=== PATIENT | female | born 1935 | race Caucasian/White ===

== ENCOUNTER 2016-05-31 03:30 | Emergency (ER) | payer MEDICARE ==
[~2016-05-31] VITALS: Ht 157.4 cm; Wt 63.5 kg
[~2016-05-31 03:30] MED LIST: ALOPHEN5 MG PO; ARANESP0.1 MG/0.5 SC; ATARAX,VISTARIL10 MG PO; ATARAX10 MG; ATIVAN0.5 MG PO; ATOXIMETIN-B1 CAP PO; ATROPINE SULFATE T; ATROVENT I0.5 MG/2.1 INH; BACTRIM DS 8001 TA1 IV; BISACODYL5 MG PO; CALCIUM ANTACID PO; CEFTIN250 MG PO; CEFTRIAXONE IM; CEFTRIAXONE1 GM IM; CEROVITE ADVANC1 TAB PO; CIPRO XR500 MG PO; CIPROFLOXACIN100 MG PO; COLACE PO; COLACE100 MG PO; COREG3.125 MG PO; COUMADIN3 MG PO; COUMADIN4 M1 PO; COUMADIN6 M2 PO; CYMBALTA30 MG PO; CYMBALTA60 MG PO; Coumadin3 MG PO; DOXYCYCLINE100 M3 PO; DOXYCYCLINE100 MG PO; DULCOLAX STOOL100 MG PO; DULCOLAX5 MG PO; DURAGESIC50 MCG/HR TD; DUREZOL 5 ML5 ML OP; Duragesic 25 M25 MCG INTRADERM; Duragesic 25 M25 MCG TD; EPA/GLA1 SGL PO; FAMILY PHARMAC325 MG PO; FE-TABS325 MG PO; FENTANYL TR25 MCG/HR T; FENTANYL75 MCG/HR TD; FERROUS SULFAT324 M1 PO; FISH OIL 10001000 MG PO; FLAGYL500 MG PO; FLEET ADULT ENEM1 EA R; FLEXERIL10 MG PO; FLORASTOR250 MG PO; GENTAMICIN IV; GLIMEPIRIDE4 MG PO; GLUCAGON EMERGEN1 MG IJ; HYDROXYZINE10 MG PO; IRON325 M1 PO; ISOPTO ATROPINE PO; JANTOVEN4 MG PO; JANUVIA100 MG PO; KEFLEX500 MG PO; LASIX40 MG PO; LEVAQUIN750 MG PO; LEVOTHYROXIN0.025 MG PO; LEXAPRO10 MG PO; LEXAPRO20 MG PO; LIQUID MAGNESI400 MG PO; LOMOCOT 0.025 M1 TAB; LOMOTIL 0.025 M1 TA1 PO; LOVENOX30 MG/0.3 SC; Lovenox30 MG/0.3 SC; Lovenox40 MG/0.4 IJ; Lovenox80 MG/0.8 SC; MACROBID100 M1 PO; MEGACE 40400 MG/10 PO; MEGACE PO; MEGACE40 MG PO; METFORMIN500 MG PO; MICRO K10 MEQ PO; MINOCYCLINE HC100 MG PO; MINOCYCLINE100 MG PO; MIRALAX17 GM/PACK PO; MORPHINE S20 MG/1 ML PO; MORPHINE SULFATE PO; MULTIPLE VITAMI1 CAP PO; MYCOLOG CREAM 115 GM T; Micro K10 MEQ PO; NOVOLIN R100 U/ML SC; NOVOLOG10 ML SC; NUTREN; OMEGA 31000 MG; ONDANSETRON8 M1; OSCAL,OYSTER S500 MG PO; PERCOCET 325 MG1 TA2; PERCOCET 500 MG1 TAB PO; PERIDEX 14401440 ML PO; POLYETHYLE17 GM/Dose PO; POLYETHYLENE GL1 POW; POTASSIUM CHLO10 ME4 PO; POTASSIUM20 MEQ PO; PRAVACHOL20 MG PO; PREDNISOLONE5 MG; PREDNISONE10 MG PO; PREDNISONE5 MG PO; PRILOSEC10 MG/Pack PO; PRILOSEC20 MG; PROCRIT10000 U/ML IJ; PROSTATE; Peridex 473 ML473 ML PO; QUESTRAN LIGHT4 GM PO; RESOURCE 2.0 2237 ML PO; RISPERDAL1 M1 PO; ROBITUSSIN100 MG/5 M PO; ROCEPHIN1 GM IV; ROXICODONE5 MG PO; SENNA PLUS PO; SOLU-MEDROL40 MG PO; SUPER EPA 2002000 MG PO; SYNTHROID,LEVO25 MCG PO; SYNTHROID0.075 MG PO; TOBRAMYCIN AND2.5 ML OP; TOPICORT0.05% TP; TOPICORT0.051 TP; TRAMADOL HCL50 MG PO; TYLENOL 8 HOUR650 MG PO; TYLENOL EXTRA500 MG PO; TYLENOL325 M1 PO; TYLENOL500 MG PO; Tobrex Ophth S2.5 ML OPH; VIBRAMYCIN100 MG PO; VISINE 15 ML15 ML OPH; VISION T; VITAMIN D50000 I2 PO; Ventolin 02.5 MG/3 M INH; XANAX0.25 MG PO; ZOFRAN4 MG/5 ML PO; ZOFRAN8 MG PO; ZYPREXA2.5 MG PO; ZYRTEC10 M3 PO; Zofran4 MG PO; [UNRECOGNIZED DRUG - OTHER] PO
[2016-05-31] MEDS ORDERED: GLIPIZIDE5 MG PO (03:41)
[2016-05-31] MEDS ORDERED: MULTI VITAMINS1 TAB PO (03:42)
[2016-05-31] MEDS ORDERED: LANTUS100 U/ML SC (03:43)
[2016-05-31] MEDS ORDERED: TYLENOL325 M2 PO (03:45)
[2016-05-31] MEDS ORDERED: NORCO 5-325 TA1 EACH PO (03:45)
[2016-05-31 03:59] LABS: BILIRUBIN NEGATIVE (NEGATIVE); BLOOD 2+ (NEGATIVE); CLARITY SL CLOUDY (CLEAR); COLOR YELLOW (YELLOW); GLUCOSE NEGATIVE (NEGATIVE); KETONE NEGATIVE (NEGATIVE); LEUKO ESTERASE 2+ (NEGATIVE); NITRITE NEGATIVE (NEGATIVE); PH 6.5 (5.0-9.0); PROTEIN 3+ (NEGATIVE); SPECIFIC GRAVITY 1.025 (1.005-1.030)
[2016-05-31 04:01] LABS: BASO % 0.4 % (0.0-1.0); EOS # 0.4 10*3/uL (0.0-0.4); EOS % 4.8 % (1.0-4.0); HEMATOCRIT 46.1 % (37.0-47.0); HEMOGLOBIN 15.5 g/dl (12.0-16.0); LYMPH # 1.8 10*3/uL (1.3-4.4); LYMPH % 22.7 % (27.0-41.0); MEAN CELL VOLUME 94.9 fl (81.0-99.0); MEAN CORPUSCULAR HGB 31.9 pg (27.0-31.0); MEAN CORPUSCULAR HGB CONC 33.6 g/dl (33.0-37.0); MEAN PLATELET VOLUME 10.9 fl (9.6-12.3); MONO # 0.8 10*3/uL (0.1-1.0); NEUT % 61.7 % (47.0-73.0); PLATELET COUNT AUTOMATED 123 10*3/uL (130-400); RED BLOOD COUNT 4.86 10*6/uL (4.10-5.10); WHITE BLOOD COUNT 8.1 10*3/uL (4.8-10.8)
[2016-05-31 04:09] LABS: BACTERIA 1+; RBC 41-50 rbc/hpf (0-2); WBC 41-50 wbc/hpf (0-5)
[2016-05-31 04:18] LABS: ALBUMIN 2.8 gm/dl (3.1-4.5); ALKALINE PHOSPHATASE 121 U/L (45-117); BILIRUBIN, DIRECT 0.4 mg/dL (0.0-0.2); BILIRUBIN, TOTAL 0.9 mg/dl (0.2-1.0); BUN 12 mg/dl (7-24); CARBON DIOXIDE 24 mmol/L (21-32); CHLORIDE 106 mmol/L (98-107); EST GLOM FILT AFRICAN AMERICAN > 60 ml/min; GLUCOSE 169 mg/dL (65-99); MAGNESIUM 1.8 mg/dL (1.5-2.1); POTASSIUM 3.6 mmol/L (3.5-5.1); SGOT/AST 38 IU/L (3-35); SGPT/ALT 18 U/L (12-78); SODIUM 143 mmol/L (136-145); TOTAL PROTEIN 8.2 gm/dL (6.4-8.2)
[2016-05-31 04:19] LABS: TROPONIN I 0.031 ng/ml (<0.045)
[2016-05-31 05:57] LABS: LA>2 REFLEX 2 HR DRAW NOW
[2016-05-31 06:23] LABS: LA>2 RFLX FOLLOW UP AT 2 HRS 2.5 mmol/L (0.4-2.0)
[2016-05-31] MEDS ORDERED: MACROBID100 M1 PO (06:39)
[2016-05-31 08:13] LABS: LA>2 REFLEX 4 HR DRAW NOW
== END 2016-05-31 07:11 ==
LOC: ED 03:30
PROVIDERS: Emergency Medicine
DX: R56.9 Unspecified convulsions (principal); N39.0 Urinary tract infection, site not specified; Z88.0 Allergy status to penicillin; Z88.1 Allergy status to other antibiotic agents; Z88.6 Allergy status to analgesic agent; Z79.4 Long term (current) use of insulin; Z79.899 Other long term (current) drug therapy

== ENCOUNTER 2016-09-02 18:20 | Inpatient (IN) | payer MEDICARE ==
[~2016-09-02] VITALS: Ht 162.6 cm; Wt 74.4 kg
[2016-09-02] VITALS (11 sets, daily range): BP systolic 96–167; BP diastolic 37–81
--- NOTE | ~2016-09-02 | DS ---
[place], [place] DISCHARGE SUMMARY [id number] UN[facility] #: [id number] ROOM: 407 DOCTOR: NENITA AGUILAR MD BIRTHDATE: [birth year] DOS: 09/06/2016 DISCHARGE DIAGNOSES: 1. Acute cholecystitis with gallstones, improved with antibiotic treatment. Dr. Reyes suggested conservative treatment. The patient is not a good surgical candidate. 2. Enterobacter cloacae positive blood cultures. 3. Sepsis, resolved. 4. Escherichia coli positive urine infection with cystitis. 5. Old age and disability and adult failure to thrive. 6. 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 7. Uncontrolled type 2 diabetes mellitus. 8. History of seizure disorder. 9. Previous history of lower gastrointestinal bleed. 10. Previous history of intracranial bleed. HOSPITAL COURSE: 1. The patient was admitted to [facility] when she presented from the [facility] with severe right upper quadrant abdominal pain and she was found to have acute cholecystitis and cholelithiasis. The patient was admitted and treated conservatively after Dr. Reyes, the general surgeon recommended conservative treatment. The patient did improve with treatment with IV antibiotics and abdominal pains have resolved. The patient is eating better and she was hydrated with normal saline. The patient appears to have achieved maximum benefit from this admission and will be discharged back to the [facility]. The surgeon, Dr. Reyes suggested surgery only if necessary and peripherally percutaneous cystostomy because of her poor general health and patient being a poor candidate for surgery. 2. Type 2 diabetes mellitus with reasonably controlled blood sugars. Blood sugars were monitored and treated. 3. Mixed hyperlipidemia, followed and treated. 4. Benign essential hypertension with controlled blood pressures with treatment. 5. Urinary tract infection with urine cultures growing Escherichia coli, which were appropriately treated with antibiotics and blood cultures 1 out of 2 bottles growing Enterobacter cloacae, treated with IV aztreonam. DISCHARGE MANAGEMENT: Hydroxyzine 25 mg t.i.d. p.r.n. for anxiety, risperidone 0.5 mg at bedtime, Kenalog to skin as needed b.i.d., Cymbalta 90 mg a day, cetirizine 10 mg a day, glipizide 5 mg daily, check bedside sugars q.i.d. 2 days a week, levothyroxine 25 mcg daily, aztreonam IV 2 grams daily for 6 more doses, fentanyl patch 25 mcg every 3 days, Flagyl 250 mg every 8 hours for a week, Tylenol 1 gram t.i.d. p.r.n. for breakthrough brain. [place], [place] DISCHARGE SUMMARY NAME: IZZY CADET UNIT #: [id number] ROOM: 407 DOCTOR: NENITA AGUILAR MD BIRTHDATE: [birth year] NENITA AGUILAR MD CM:KARAN [id number] NENITA AGUILAR MD 09/06/16 1635 interface
--- NOTE | ~2016-09-02 | PR ---
[place], [place] PROGRESS NOTE NAME: IZZY CADET UNIT #: [id number] ROOM: 407 DOCTOR: CLARITZA FELIZ,MAY BIRTHDATE: [birth year] DOS: 09/06/2016 SUBJECTIVE: The patient is being followed for an Enterobacter septicemia with positive blood cultures from 09/02/2016. Urine culture grew E. coli. She had an ultrasound, which verified acute cholecystitis with cholelithiasis which is being managed conservatively by surgery. Orders have already been placed for [facility] She is currently on a VAC and she has multiple drug allergies with only known reaction with rash with cephalosporins. She is tolerating the Azactam, has good appetite. No nausea, vomiting or diarrhea. No abdominal pain. No cough or shortness of breath. No recent fevers or shaking chills. PHYSICAL EXAMINATION: VITAL SIGNS: Show temperature 98.0, pulse 84, respirations 20, BP 152/57. GENERAL: A 81-year-old female in no acute distress. HEAD, EYES, EARS, NOSE AND THROAT: Normocephalic, no thrush. LUNGS: Rales at bilateral bases. Respirations even and unlabored. HEART: Regular rhythm. No murmur appreciated. ABDOMEN: Soft, nontender, nondistended, positive bowel sounds. EXTREMITIES: +1 edema of bilateral lower extremities. SKIN: Warm, dry, free of rashes. LABORATORY DATA: Show WBC 7.6, platelets 122, BUN 28, creatinine 0.78. ASSESSMENT: Acute cholecystitis with Enterobacter septicemia. PLAN: I did discuss the case with Dr. Sue Montoya. She can be discharged on the Azactam and Flagyl. JCARLOS JERRY CNP SUE MONTOYA MD CM:PNTRANS [id number] MAY CLARITZA FELIZ 09/06/16 2242 interface
--- NOTE | ~2016-09-02 | PR ---
[place], [place] PROGRESS NOTE NAME: IZZY CADET UNIT #: [id number] ROOM: 407 DOCTOR: NENITA AGUILAR MD BIRTHDATE: [birth year] DOS: 09/05/2016 SUBJECTIVE: The patient still has some right upper quadrant pain, but overall better. The patient is sleeping more than yesterday. OBJECTIVE: GENERAL APPEARANCE: Generalized weakness. VITAL SIGNS: Blood pressure 152/65, heart rate 69 beats per minute, breathing 20 times per minute, temperature 98 degrees Fahrenheit. HEENT AND NECK: Exam within normal limits. CARDIOVASCULAR SYSTEM: Heart rate is regular in rate and rhythm. S1 and S2 normally audible. LUNGS: Clear to auscultation. ABDOMEN: Soft, nontender. No obvious organomegaly. Bowel sounds are present. EXTREMITIES: Without significant cyanosis or edema. IMPRESSION: 1. The patient with acute cholecystitis and gallstones, which is being treated conservatively and improving. Surgeon, Dr. Reyes recommended conservative treatment and kept surgery as a last choice. 2. Urinary tract infection, is being treated and followed. One blood culture growing gram-negative bacilli. Urine culture is growing E. coli. 3. The patient tolerating regular diet and is being treated with aztreonam. Infectious Disease specialists are following. NENITA AGUILAR MD CM:PNTRANS [id number] NENITA AGUILAR MD 09/06/16 0010 interface
[~2016-09-02 18:20] MED LIST changes: +GLIPIZIDE5 MG PO; +LANTUS100 U/ML SC; +MULTI VITAMINS1 TAB PO; +NORCO 5-325 TA1 EACH PO; +TYLENOL325 M2 PO
[2016-09-02 18:46] LABS: BILIRUBIN 1+ (NEGATIVE); BLOOD 3+ (NEGATIVE); CLARITY SL CLOUDY (CLEAR); COLOR YELLOW (YELLOW); GLUCOSE NEGATIVE (NEGATIVE); KETONE TRACE (NEGATIVE); LEUKO ESTERASE 3+ (NEGATIVE); NITRITE NEGATIVE (NEGATIVE); PH 5.5 (5.0-9.0); PROTEIN 2+ (NEGATIVE)
[2016-09-02 18:51] LABS: BACTERIA 4+; MUCOUS TRACE; URINE REFLEX COMMENT YES (NO); WBC TNTC wbc/hpf (0-5)
[2016-09-02] MEDS ORDERED: DOXYCYCLINE100 M3 PO (18:58)
[2016-09-02] MEDS ORDERED: CYMBALTA60 MG PO (18:58)
[2016-09-02] MEDS ORDERED: GLIPIZIDE5 MG PO (18:59)
[2016-09-02] MEDS ORDERED: Duragesic 25 M25 MCG TD (18:59)
[2016-09-02] MEDS ORDERED: HUMALOG100 UNIT/1 SQ (19:00)
[2016-09-02] MEDS ORDERED: LANTUS100 U/ML SC (19:00)
[2016-09-02] MEDS ORDERED: HYDROXYZINE HCL10 MG PO (19:00)
[2016-09-02] MEDS ORDERED: LEVOTHYROXIN0.025 MG PO (19:01)
[2016-09-02] MEDS ORDERED: NORCO 5-325 TA1 EACH PO (19:01)
[2016-09-02] MEDS ORDERED: MULTIPLE VITAMI1 TA5 PO (19:01)
[2016-09-02] MEDS ORDERED: NYSTATIN AND TR1 OIN T (19:02)
[2016-09-02] MEDS ORDERED: ZYRTEC10 MG PO (19:03)
[2016-09-02] MEDS ORDERED: RISPERDAL0.5 MG PO (19:03)
[2016-09-02] MEDS ORDERED: TYLENOL325 M2 PO (19:03)
[2016-09-02 19:13] LABS: HEMATOCRIT 41.3 % (37.0-47.0); HEMOGLOBIN 14.7 g/dl (12.0-16.0); MEAN CELL VOLUME 89.4 fl (81.0-99.0); MEAN CORPUSCULAR HGB 31.8 pg (27.0-31.0); MEAN CORPUSCULAR HGB CONC 35.6 g/dl (33.0-37.0); MEAN PLATELET VOLUME 11.3 fl (9.6-12.3); PLATELET COUNT AUTOMATED 111 10*3/uL (130-400); RED BLOOD COUNT 4.62 10*6/uL (4.10-5.10); RED CELL DISTRI WIDTH 14.2 % (0-14.5); WHITE BLOOD COUNT 26.2 10*3/uL (4.8-10.8)
[2016-09-02 19:31] LABS: ALBUMIN 2.7 gm/dl (3.1-4.5); BILIRUBIN, TOTAL 1.6 mg/dl (0.2-1.0); POTASSIUM 3.9 mmol/L (3.5-5.1); TOTAL PROTEIN 8.1 gm/dL (6.4-8.2)
[2016-09-02 19:35] LABS: LYMPHOCYTE # 0.5 10*3/uL (1.3-4.4); MONOCYTE # 1.8 10*3/uL (0.1-1.0); NEUTROPHIL # 23.8 10*3/uL (2.3-7.9); NEUTROPHILS 91 % (47-73); PLATELET SUFFICIENCY NORMAL (NORMAL); TOTAL CELLS COUNTED 100 #CELLS
[2016-09-02 21:09] LABS: LA>2 REFLEX 2 HR DRAW NOW
[2016-09-02 21:17] LABS: LA>2 RFLX FOLLOW UP AT 2 HRS 6.8 mmol/L (0.4-2.0)
[2016-09-02 23:11] LABS: LA>2 REFLEX 4 HR DRAW NOW
[2016-09-03 00:53] LABS: INTERNATIONAL NORM RATIO 1.3 (2.0-3.5); PROTHROMBIN TIME 13.9 SECONDS (9.0-12.4)
[2016-09-03 04:00] VITALS: BP 118/54
[2016-09-03 08:00] VITALS: BP 130/50
[2016-09-03 08:14] LABS: HEMATOCRIT 38.4 % (37.0-47.0); MEAN CORPUSCULAR HGB 31.8 pg (27.0-31.0); MEAN CORPUSCULAR HGB CONC 33.9 g/dl (33.0-37.0); MEAN PLATELET VOLUME 11.7 fl (9.6-12.3); PLATELET COUNT AUTOMATED 116 10*3/uL (130-400); RED BLOOD COUNT 4.09 10*6/uL (4.10-5.10); RED CELL DISTRI WIDTH 14.5 % (0-14.5); WHITE BLOOD COUNT 22.2 10*3/uL (4.8-10.8)
[2016-09-03 08:15] LABS: MEAN CELL VOLUME 93.9 fl (81.0-99.0)
[2016-09-03 08:27] LABS: LYMPHOCYTE # 1.6 10*3/uL (1.3-4.4); MONOCYTE # 1.3 10*3/uL (0.1-1.0); NEUTROPHIL # 19.3 10*3/uL (2.3-7.9); NEUTROPHILS 87 % (47-73); PLATELET SUFFICIENCY LOW (NORMAL); TOTAL CELLS COUNTED 100 #CELLS
[2016-09-03 12:00] VITALS: BP 155/62
[2016-09-03 16:00] VITALS: BP 114/46
[2016-09-03 20:00] VITALS: BP 116/49
[2016-09-04] VITALS: BP 139/51
[2016-09-04 08:00] VITALS: BP 137/90
[2016-09-04 12:00] VITALS: BP 138/40
[2016-09-04 16:00] VITALS: BP 107/87
[2016-09-04 20:00] VITALS: BP 122/85
[2016-09-05] VITALS: BP 125/73
[2016-09-05 08:00] VITALS: BP 108/56
[2016-09-05 12:00] VITALS: BP 144/50
[2016-09-05 16:00] VITALS: BP 152/65
[2016-09-05 20:00] VITALS: BP 146/50
[2016-09-06] VITALS: BP 178/70
[2016-09-06 08:00] VITALS: BP 136/45
[2016-09-06 12:00] VITALS: BP 152/46
[2016-09-06 12:22] LABS: BASO % 0.1 % (0.0-1.0); EOS # 0.1 10*3/uL (0.0-0.4); EOS % 1.8 % (1.0-4.0); HEMATOCRIT 34.4 % (37.0-47.0); HEMOGLOBIN 11.6 g/dl (12.0-16.0); LYMPH # 0.9 10*3/uL (1.3-4.4); LYMPH % 11.3 % (27.0-41.0); MEAN CELL VOLUME 96.1 fl (81.0-99.0); MEAN CORPUSCULAR HGB 32.4 pg (27.0-31.0); MEAN CORPUSCULAR HGB CONC 33.7 g/dl (33.0-37.0); MEAN PLATELET VOLUME 10.7 fl (9.6-12.3); MONO # 1.2 10*3/uL (0.1-1.0); MONO % 15.2 % (3.0-9.0); NEUT # 5.5 10*3/uL (2.3-7.9); NEUT % 71.3 % (47.0-73.0); PLATELET COUNT AUTOMATED 122 10*3/uL (130-400); RED BLOOD COUNT 3.58 10*6/uL (4.10-5.10); RED CELL DISTRI WIDTH 14.2 % (0-14.5); WHITE BLOOD COUNT 7.6 10*3/uL (4.8-10.8)
[2016-09-06 12:38] LABS: BUN 28 mg/dl (7-24); CARBON DIOXIDE 23 mmol/L (21-32); CHLORIDE 110 mmol/L (98-107); EST GLOM FILT AFRICAN AMERICAN > 60 ml/min; GLUCOSE 188 mg/dL (65-99); POTASSIUM 3.8 mmol/L (3.5-5.1); SODIUM 142 mmol/L (136-145)
[2016-09-06] MEDS ORDERED: FLAGYL250 MG PO (15:51)
[2016-09-06] MEDS ORDERED: TYLENOL EXTRA500 M2 PO (15:51)
[2016-09-06 16:00] VITALS: BP 152/57
[2016-09-06] MEDS ORDERED: AZTREONAM IV (16:02)
[2016-09-06] MEDS ORDERED: Duragesic 25 M25 MCG TD (16:06)
== END 2016-09-06 17:02 | DRG 872 ==
LOC: ED 18:20 → 4E 21:17 → EDHOLD 21:17 → 4E 21:41
PROVIDERS: Emergency Medicine Emergency Medical Services; Internal Medicine; Nurse Practitioner Family
DX: A41.50 Gram-negative sepsis, unspecified (principal); E44.0 Moderate protein-calorie malnutrition; K80.00 Calculus of gallbladder with acute cholecystitis without obstruction; N30.00 Acute cystitis without hematuria; Z66 Do not resuscitate; Z51.5 Encounter for palliative care; R54 Age-related physical debility; R62.7 Adult failure to thrive; E11.65 Type 2 diabetes mellitus with hyperglycemia; R65.20 Severe sepsis without septic shock; G40.909 Epilepsy, unspecified, not intractable, without status epilepticus; E78.2 Mixed hyperlipidemia; I10 Essential (primary) hypertension; B96.20 Unspecified Escherichia coli [E. coli] as the cause of diseases classified elsewhere; Z88.0 Allergy status to penicillin; Z88.1 Allergy status to other antibiotic agents; Z91.041 Radiographic dye allergy status; Z88.8 Allergy status to other drugs, medicaments and biological substances; Z79.4 Long term (current) use of insulin; Z79.899 Other long term (current) drug therapy; Z79.1 Long term (current) use of non-steroidal anti-inflammatories (NSAID); Z93.3 Colostomy status; Z68.28 Body mass index [BMI] 28.0-28.9, adult; Z87.19 Personal history of other diseases of the digestive system; Z86.79 Personal history of other diseases of the circulatory system

== ENCOUNTER 2016-11-02 15:48 | Inpatient (IN) | payer MEDICARE ==
[~2016-11-02] VITALS: Ht 162.5 cm; Wt 78.7 kg
--- NOTE | ~2016-11-02 | PR ---
[place], [place] PROGRESS NOTE [id number] UNIT #: [id number] ROOM: 510 DOCTOR: ABELARDO GARDUNO MD BIRTHDATE: [birth year] DOS: 11/10/2016 SUBJECTIVE: The patient developed hyponatremia and hypochloremia, which continues to worsen. She also is quite obtunded and lethargic, moans and occasionally opens her eyes. OBJECTIVE: VITAL SIGNS: Graphic trend shows a pressure 186/60, pulse of 72, respirations 18, temperature 97.8. LUNGS: Clear. She does have the rash in her upper chest and neck area, almost like she has some mucus in the back of her throat and she is unable to cough. HEART: Regular. ABDOMEN: Obese. Colostomy in place. EXTREMITIES: Without any edema. ASSESSMENT AND PLAN: 1. Change in mentation, possibly from electrolyte abnormalities. We will discontinue IV saline that she is currently on and place her on D5 and water. 2. Hypokalemia. Supplementation was given. 3. Possible early pneumonia. Chest x-ray will be ordered today. The patient is placed on breathing treatments p.r.n. and incentive spirometer p.r.n. 4. Urinary tract infection, on IV antibiotics which will be continued. I will discontinue Risperdal because of the continued slow mentation. ABELARDO GARDUNO MD CM:PNTRANS [id number] ABELARDO GARDUNO MD 12/04/16 0807 interface
--- NOTE | ~2016-11-02 | PR ---
[place], [place] PROGRESS NOTE [id number] UNIT #: [id number] ROOM: 510 DOCTOR: NENITA AGUILAR MD BIRTHDATE: [birth year] DOS: 11/08/2016 SUBJECTIVE: The patient is overall doing poorly, not eating much, but otherwise she is asymptomatic. OBJECTIVE: GENERAL APPEARANCE: Generalized weakness and failure to thrive. VITAL SIGNS: Blood pressure 107/70, heart rate of 80 beats per minute, breathing 18 times per minute, temperature 98 degrees Fahrenheit. HEENT AND NECK: Exam within normal limits. CARDIOVASCULAR SYSTEM: Heart rate is regular in rate and rhythm. S1 and S2 normally audible. LUNGS: Clear to auscultation. ABDOMEN: Soft, nontender. No obvious organomegaly. Bowel sounds are present. EXTREMITIES: Without significant cyanosis or edema. IMPRESSION: 1. Severe hypokalemia, treated with extra potassium supplements. The patient not on any diuretics. I will check with nursing staff if she is having any diarrhea. 2. Urinary tract infection with Escherichia coli, being treated with ceftriaxone. 3. Delirium and mental confusion, made worse by urine infection, which is being treated. 4. Generalized seizure disorder. The patient on Keppra and Ativan p.r.n. without any seizures. 5. Chronic pain syndrome, controlled with fentanyl patch, which has been decreased gradually and then stopped. 6. Benign essential hypertension with controlled blood pressures now. NENITA AGUILAR MD CM:PNTRANS 1 NENITA AGUILAR MD 11/09/16121 interface
--- NOTE | ~2016-11-02 | PR ---
[place], [place] PROGRESS NOTE [id number] UNIT #: [id number] ROOM: 510 DOCTOR: ABELARDO GARDUNO MD BIRTHDATE: [birth year] DOS: SUBJECTIVE: The patient has seizure this morning, she is waking up from the seizure. OBJECTIVE: VITAL SIGNS: Graphic trend shows a pressure 149/59, pulse of 54, respirations 16, temperature 97.7. LUNGS: Diminished breath sounds. No wheezes, rales or rhonchi heard. HEART: Regular. ABDOMEN: Obese, soft. Colostomy in place. EXTREMITIES: Without any edema. LABORATORY DATA: Blood cultures, no bacterial growth. Repeat urine culture is showing the clearing of the infection. No labs available this morning. ASSESSMENT AND PLAN: 1. The patient with history of cerebellar hemorrhage with encephalomalacia and now with a seizure. The patient is placed on Ativan IV as well as Keppra. We will start the patient on Keppra p.o. from tomorrow onwards. Discussed with the patient's daughter the code status has been made comfort care. 2. Urinary tract infection with Escherichia coli, seems to be resolving. 3. History of colostomy with the stool being dark. Hemoccults is being ordered today. 4. Recent history of cholecystitis, which seems to be showing some improvement, but the patient is a poor candidate for any kind of surgery. Plan is to discharge her back to the half-way soon. ABELARDO GARDUNO MD CM:PNTRANS [id number] ABELARDO GARDUNO MD 11/05/16 1500 interface
--- NOTE | ~2016-11-02 | PR ---
[place], [place] PROGRESS NOTE [id number] UNIT #: [id number] ROOM: 510 DOCTOR: ABELARDO GARDUNO MD BIRTHDATE: [birth year] DOS: SUBJECTIVE: The patient continues to moan this morning. She had another seizure yesterday. OBJECTIVE: VITAL SIGNS: Graphic trend shows a pressure 121/49, pulse of 71, respirations 18, temperature 97.7. LUNGS: Diminished breath sounds, scattered rhonchi. HEART: Regular. ABDOMEN: Obese. GENITOURINARY: The patient is incontinent of urine. EXTREMITIES: Without any edema. ASSESSMENT AND PLAN: 1. Pneumonia, bilateral, nosocomial, possible aspiration versus Gram-negative. The patient is well covered on antibiotics. 2. Red man syndrome, on vancomycin. The rash seems to have resolved after the vancomycin was discontinued. 3. 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 4. Lack of urine output. As per nursing staff, the Vergara catheter was removed because the balloon was deflated and there was no urine in the bag. The patient appears to be incontinent this morning on exam and her lab functions did show normal kidney functions yesterday. Awaiting a stat basic metabolic panel today and also an ultrasound of the abdomen to rule out obstructive uropathy. 5. Adult failure to thrive. Discussed with the patient's daughter. If the patient continues to deteriorate, we will need to consider hospice care. ABELARDO GARDUNO MD CM:PNTRANS 1 ABELARDO GARDUNO MD 11/14/16 0525 interface
--- NOTE | ~2016-11-02 | PR ---
[place], [place] PROGRESS NOTE NAME: IZZY CADET UNIT #: [id number] ROOM: 510 DOCTOR: IZZY KRUGER MD BIRTHDATE: [birth year] DOS: 11/12/2016 PULMONARY FOLLOWUP NOTE SUBJECTIVE: The patient has been noted at this time, still chest congestion, inability to expectorate sputum. Her daughter was present at bedside with the patient. The patient was noted chronic infusion as well. OBJECTIVE: VITAL SIGNS: For the patient which were recorded. The patient showed the temperature noted as normal. The respiratory recorded as 20, heart rate 74, blood pressure 128/79. Pulse oxygen saturation noted on 2 L nasal cannula 100% saturation. HEENT: Examination shows no new change. NECK: Supple. CARDIOVASCULAR: S1, S2 audible. LUNGS: Basilar crackles, decreased breath sounds and scattered wheezing in the lungs bilaterally. ABDOMEN: Soft, nontender. EXTREMITIES: Show no edema. LABORATORY DATA: BMP today was noted. Potassium 3.3, otherwise normal. CBC this morning essentially was noted as normal CBC. Chest x-ray PA lateral patient view, which was done today was reviewed. The finding would be considered limited based on the current body habitus. Evidence of patchy infiltration noted in the left lower lobe for this patient. Right hemidiaphragm was noted mildly elevated as well. IMPRESSION: 1. The patient with acute bacterial pneumonia. The patient most likely aspiration pneumonia in the left lower lobe was very likely. 2. The patient with history of dementia as well. 3. Severe cough, chest congestion, inability to expectorate sputum at the present time. PLAN OF TREATMENT: The patient has been suggested about the fiberoptic bronchoscopy. The patient's current ongoing problem with further appropriate assessment, the patient to help clear secretions endobronchial tree get the samples to treat the current infection effectively in the lungs. Risk and benefit were discussed with the patient's daughter in detail at the bedside. The consent was obtained. Procedure was scheduled to be done in the morning, n.p.o. ____ status will be achieved. [place], [place] PROGRESS NOTE NAME: IZZY CADET UNIT #: [id number] ROOM: 510 DOCTOR: IZZY KRUGER MD BIRTHDATE: [birth year] IZZY WALLACE MD CM:PNTRANS [phone] [id number] IZZY MARES MD 11/13/16344 interface
--- NOTE | ~2016-11-02 | WRIGHTHP ---
[place], [place] PATIENT HISTORY AND PHYSICAL EXAM NAME: IZZY CADET [facility] #: [id number] UNIT #: [id number] ROOM: 510 DOCTOR: ABELARDO GARDUNO MD BIRTHDATE: [birth year] DOS: 11/02/2016 HISTORY OF PRESENT ILLNESS: The patient is 81 years old, very well known to us. The patient is a resident of a care home. She was brought in with confusion. The patient has been yelling out and screaming about pain all over her body. She does not have any chest pains, palpitations, does not have any fever, chills, does not have any abdominal pain, nausea, any emesis. PAST MEDICAL HISTORY: Significant for; 1. 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 2. Previous hospitalization with urinary tract infection. 3. Cholecystitis in admission 09/06/2016. 4. Sigmoid volvulus, status post colectomy, colostomy. 5. History of seizure disorder. 6. History of intracranial bleed with encephalomalacia and encephalopathy. 7. Type 2 diabetes mellitus, insulin-dependent. MEDICATIONS: She is currently on are Tylenol 500 t.i.d., Coreg 3.125 daily, Colace 100 b.i.d., doxycycline 100 daily, Cymbalta 30 daily, glipizide 5 b.i.d., hydroxyzine 10 q.6 hours and 25 t.i.d., levothyroxine 25 mcg daily, lovastatin 10 daily, Risperdal 0.5 at bedtime, Januvia 100 daily, insulin Lantus 50 units subcutaneous daily, fentanyl 25 q.72 hours. SOCIAL HISTORY: Nonsmoker. Resident of a care home. PHYSICAL EXAMINATION: GENERAL: She is awake and alert, oriented to person, but she does continue to complain and scream out about pain all over her body. VITAL SIGNS: Pressure is 144/66, pulse of 76, respirations 22, temperature 98.6, T-max of 99.3. HEENT: Her mouth is very dry. LUNGS: Diminished breath sounds. No wheezes, rales or rhonchi heard. HEART: Regular. ABDOMEN: Obese. Colostomy is working. EXTREMITIES: Without any edema. LABORATORY DATA: White cell count on admission 4.7, hemoglobin 12.4, hematocrit 36.4, platelets 76. Comprehensive glucose 126, BUN 7, creatinine 0.69, sodium 142, potassium 3.6, chloride 109, bicarbonate 25. Liver enzymes normal. Chest x-ray, stable cardiomegaly. Urine culture done recently showed that she was positive for E. coli sensitive to floxin, resistant to Bactrim. ASSESSMENT AND PLAN: 1. The patient who presents with encephalopathy, metabolic, most likely from an underlying urinary tract infection. IV fluids, IV antibiotics have been ordered. 2. Chronic pain. I will increase the dose of the fentanyl. 3. Type 2 diabetes mellitus, insulin-dependent. Blood sugars to be checked and restart meds. 4. History of recent episode of cholecystitis. We will check LFTs. [place], [place] PATIENT HISTORY AND PHYSICAL EXAM NAME: IZZY CADET UNIT #: [id number] ROOM: [facility] DOCTOR: ABELARDO GARDUNO MD BIRTHDATE: [birth year] ABELARDO GARDUNO MD CM:HISPHYS:PATIENT HISTORY AND PHYSICAL EXAMINATION [id number] ABELARDO GARDUNO MD 11/04/16 1623 interface
--- NOTE | ~2016-11-02 | PR ---
[place], [place] PROGRESS NOTE NAME: IZZY CADET UNIT #: [id number] ROOM: 510 DOCTOR: ABELARDO GARDUNO MD BIRTHDATE: [birth year] DOS: ADDENDUM: Rash. ABELARDO GARDUNO MD CM:PNTRANS [phone] ABELARDO GARDUNO MD 12/04/16 0609 interface
--- NOTE | ~2016-11-02 | PR ---
[place], [place] PROGRESS NOTE NAME: IZZY CADET UNIT #: [id number] ROOM: 510 DOCTOR: NENITA AGUILAR MD BIRTHDATE: [birth year] DOS: 11/09/2016 SUBJECTIVE: The patient is quite weak, wakes up and does eat her meals. OBJECTIVE: VITAL SIGNS: Blood pressure ranging between 107-170 systolic over 66-70 diastolic, heart rate of 80 beats per minute, breathing 20 times per minute, afebrile. GENERAL APPEARANCE: The patient is alert and oriented x 3, in no visible distress. Generalized weakness. HEENT AND NECK: Exam within normal limits. CARDIOVASCULAR SYSTEM: Heart rate is regular in rate and rhythm. S1 and S2 normally audible. LUNGS: Clear to auscultation. ABDOMEN: Soft, nontender. No obvious organomegaly. Bowel sounds are present. EXTREMITIES: Without significant cyanosis or edema. IMPRESSION: 1. Adult failure to thrive. 2. Hypokalemia. I will repeat her potassium level and treat accordingly. There is no reason for the patient to have hypokalemia. She is not on any diuretics and she has no diarrhea. 3. Benign essential hypertension with controlled blood pressures. With blood pressures varying a lot, it could be because nursing staff is using automatic cuff and not using manual blood pressure checks and the automatic cuff was not reliable. 4. Generalized seizure disorder without any recent seizures with Keppra and Ativan. 5. Delirium and mental confusion. The patient sleeps a lot. 6. Urinary tract infection with Escherichia coli, treated with ceftriaxone. NENITA AGUILAR MD CM:PNTRANS [phone] NENITA AGUILAR MD 11/09/16 224 interface
--- NOTE | ~2016-11-02 | DS ---
[place], [place] DISCHARGE SUMMARY [id number] #: [id number] ROOM: 510 DOCTOR: ABELARDO GARDUNO MD BIRTHDATE: [birth year] DOS: 11/13/2016 DIAGNOSES: 1. Right middle lobe pneumonia as well as left lower lobe pneumonia, possible gram negative. 2. Seizure disorder. 3. Red man syndrome from vancomycin. 4. Encephalomalacia from intracranial hemorrhage. 5. Electrolyte abnormalities with hyponatremia, hypochloremia, hypokalemia. 6. History of deep venous thrombosis. 7. History of subacute bacterial endocarditis. 8. Urinary tract infection. 9. Encephalopathy, metabolic. HOSPITAL COURSE: This patient is very well known to us, comes in with complaints of increasing difficulty breathing and hypoxemia. Please see H and P for further details. After admission, the patient was placed on IV antibiotics and patient continued to complain of chronic pain, medication adjustments were made, recent cholecystitis was noted, but she was not a candidate for any kind of surgical intervention as per surgery. The patient was treated, continued to improve, but then started getting worse with increased confusion. Chest x-ray at this time showed pneumonia. The patient also had electrolyte abnormality. Free water supplementation was started. Condition was discussed with the patient's daughter in detail. The patient had a croupy cough was unable to cough up any mucus, raising the possibility of aspiration. Dr. Almazan was consulted and the patient was taken for bronchoscopy. After the patient's bronchoscopy was performed, the patient developed respiratory failure and . Code status was DNR/CC. ABELARDO GARDUNO MD CM:DISCHARG 0839 ABELARDO GARDUNO MD 12/15/16 0949 interface
--- NOTE | ~2016-11-02 | PR ---
[place], [place] PROGRESS NOTE NAME: IZZY CADET UNIT #: [id number] ROOM: 510 DOCTOR: ABELARDO GARDUNO MD BIRTHDATE: [birth year] DOS: SUBJECTIVE: The patient is a little confused this morning, but does try to communicate. She does not have any pain. OBJECTIVE: VITAL SIGNS: Blood pressure is 107/50, pulse of 90, respirations 16, temperature 97.7. LUNGS: Diminished breath sounds, clear. HEART: Regular. ABDOMEN: Soft. EXTREMITIES: Without any edema. LABORATORY DATA: Urine culture, repeat one is showing no bacterial growth. White blood cell count is 6.1, hemoglobin 10.9, hematocrit 33.2, platelets 77. BMP not available. ASSESSMENT AND PLAN: 1. Urinary tract infection with Escherichia coli, on IV antibiotics. 2. Seizure disorder in a patient with the previous history of cerebral hemorrhage, now controlled. Keppra will be turned into a p.o. medication and Ativan continued to be p.r.n. 3. Chronic pain syndrome, controlled. We will decrease the dose of the fentanyl again. 4. Benign hypertension, controlled. Hemoccults were ordered yesterday, somehow it has not been done, we will repeat it today. ABELARDO GARDUNO MD CM:PNTRANS [id number] [id number] ABELARDO GARDUNO MD 11/06/16 1119 interface
--- NOTE | ~2016-11-02 | PR ---
[place], [place] PROGRESS NOTE NAME: IZZY CADET UNIT #: [id number] ROOM: 510 DOCTOR: MADISON MARES MDIZZY BIRTHDATE: [birth year] DOS: 11/13/2016 SUBJECTIVE: She was independently seen and examined this morning. The labs were reviewed. Physical examination performed. Assessment and management changes for the patient were personally made. The patient is currently noted n.p.o. past midnight for bronchoscopy that was planned to be done today. She has completed ultrasound of the abdomen that was ordered by Dr. Sujata Grady showed cirrhosis of the liver. The note which was done by the medical office assistant was approved. She was planned for bronchoscopy done today. The patient continues to have severe chest congestion and inability to clear secretions and expectorate any sputum. OBJECTIVE: VITAL SIGNS: For the patient which were recorded shows the temperature of the patient was noted as normal this morning at 8:00, respiratory rate 20, heart rate 68, blood pressure 128/52. Pulse oxygen saturation noted on nasal cannula for this patient as 100% with a Venturi mask and the simple face mask. HEENT: The patient shows head was atraumatic. Edentulous status. CARDIOVASCULAR: S1, S2 audible. LUNGS: Noted with decreased breath sounds. Patient had scattered crackles of the lungs bilaterally. ABDOMEN: Soft and nontender. EXTREMITIES: Shows no edema. Mental status of the patient was noted at baseline. She was noted moaning and groaning. The daughter was present at bedside with the patient. LABORATORY DATA: BMP today was noted, BUN 12, creatinine 1.62. The creatinine of the patient yesterday was noted as 0.73. The blood culture from the of this month does not show any bacterial growth. IMPRESSION: The patient retained secretions with excessive chest congestion, inability to expectorate sputum, history of dementia as well as acute pneumonia with superimposed area of atelectasis and respiratory failure. PLAN OF MANAGEMENT: Proceed with bronchoscopy. At this time, any modification of treatment or change in the patient ____ to be done for the patient and bronchoscopy done afterwards. [place], [place] PROGRESS NOTE NAME: IZZY CADET UNIT #: [id number] ROOM: 510 DOCTOR: IZZY KRUGER MD BIRTHDATE: [birth year] IZZY WALLACE MD CM:PNTRANS [id number] IZZY MARES MD 11/14/16 0244 interface
--- NOTE | ~2016-11-02 | CON ---
[place], [place] REPORT OF CONSULTATION NAME: IZZY CADET [facility] #: [id number] UNIT #: [id number] ROOM: 510 DOCTOR: IZZY KRUGER MD BIRTHDATE: [birth year] DOS: 11/11/2016 REASON FOR CONSULTATION: Assess the patient with acute pneumonia. REQUESTING PHYSICIAN: Dr. Sujata Grady. The consultation done for the patient assessment of acute pneumonia. HISTORY OF PRESENT ILLNESS: A 81-year-old white female, resident of a prison. She has been admitted to the hospital under thecare of Dr. Sujata Grady on 11/02/2016. The patient presented to the Emergency Room as the patient has been noted with increased confusion status, yelling and screaming and also noted with the pain described all over the body. The patient has been currently admitted to the hospital and treated. She has a chest x-ray done, which reported evidence of acute pneumonia. She has not been able to give me any history by herself. REVIEW OF SYSTEMS: The patient certainly cannot be completed. History would be considered very limited. Most of the history has been reviewed from the documentation and medical records by the primary care physician's noted as well as the nursing notes. Part of the history was also obtained from my previous consultation on this patient in 2013. PAST MEDICAL HISTORY: 1. Noted history of aortic stenosis. 2. 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 3. History of bronchial asthma, severity unknown. 4. History of cardiomyopathy with ejection fraction less than 40% previously. 5. History of failure to thrive. 6. Hypothyroidism. 7. Essential hypertension. 8. Hyperlipidemia. 9. The patient has a history of type 2 diabetes mellitus. 10. 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 11. History of cholecystitis. 12. History of seizures. SOCIAL HISTORY: Resident of a prison. There was no history of alcohol or illicit drug use was noted. Tobacco use was noted in the past, unknown duration and quantity. PAST SURGICAL HISTORY: 1. Laminectomy. 2. PEG tube insertion. 3. Epidural abscess. 4. Status post colectomy with permanent colostomy. CURRENT MEDICATIONS: Listed as from the nursing facility noted use of Tylenol, Coreg, Colace, doxycycline 100 mg daily for chronic SBE endocarditis management, [place], [place] REPORT OF CONSULTATION NAME: IZZY CADET UNIT #: [id number] ROOM: 510 DOCTOR: MADISON MARES MD,IZZY BIRTHDATE: [birth year] Cymbalta, glipizide, hydroxyzine, levothyroxine, lovastatin, Risperdal, Januvia, Lantus insulin, fentanyl, and other p.r.n. medications. PHYSICAL EXAMINATION: GENERAL: This is a 81-year-old female who has been currently noted at this time awake, but does not have any meaningful conversation. The patient was getting oxygen supplementation nasal cannula at the present time of assessment. VITAL SIGNS: Height for the patient was recorded by the nursing staff at the time of admission with height of 5 feet 4 inches, weight 173 pounds, BMI 29.8. Temperature was noted as normal in the last 3 days, respiratory rate between 18-20, heart rate 78-75, blood pressure 165/62-150/63. Pulse oxygen saturation on 2 L nasal cannula was noted as 98% saturation. EXTREMITIES: Without any edema, clubbing or cyanosis. LUNGS: Decreased breath sounds noted in the lower portion of the lungs. ABDOMEN: Soft, nontender, bowel sounds present. CENTRAL NERVOUS SYSTEM: At this time, unable to assess. SKIN: Visible, does not show any lesions or rashes. MUSCULOSKELETAL: Does not show any acute deformities, which were obvious. LABORATORY DATA: The urine culture from the showed no bacterial growth. The CBC on 11/06/2016, hemoglobin 10.9, hematocrit 33.2, platelet count 77,000. The BMP on 11/06/2016 noted normal BUN and creatinine. Potassium 3.3, sodium mildly elevated at 147. BMP on the noted normal BUN and creatinine. Potassium 2.8, sodium had been mildly elevated at 148. Blood culture from the of this month 2 sets, abnormal bacterial isolation. The culture was noted negative. Stool for occult blood on was negative. The BMP on 11/10/2016 was noted as potassium 3.3, sodium 150. BMP this morning for this patient was noted as normal sodium, potassium was 3.3. RADIOLOGY DATA: Review for the patient, which has noted, chest x-ray for this patient that was done on 11/02/2016 shows cardiomegaly, mild finding of pulmonary venous congestion. One view chest x-ray that was done yesterday shows interval development area of consolidation and/or atelectasis, combination in the left lower lobe retrocardiac area. Small right middle lobe infiltration cannot be excluded. There were no findings of acute congestive heart failure. The patient was rotated somewhat towards the left, which is exaggerating some of the findings. IMPRESSION: The patient who has been currently admitted to the hospital, treated for shortness of breath with congestive heart failure, noted electrolyte imbalance, current chest x-ray is suggestive of possible either atelectasis or development of acute pneumonia during the hospitalization, which was noted absent from admission. The patient was noted afebrile, finding of atelectasis would be considered much more likely than the pneumonia. PLAN OF MANAGEMENT: The patient will be ordered a chest x-ray, PA and lateral view for more clear delineation; in the meantime, continue current antibiotic with vancomycin coverage of gram-positive infection for the hospital-acquired infection if that will be proven. Bronchodilator to be continued. Continue oxygen supplementation, maintain saturation 92% or greater. Closely monitor [place], [place] REPORT OF CONSULTATION NAME: IZZY CADET UNIT #: [id number] ROOM: 510 DOCTOR: IZZY KRUGER MD BIRTHDATE: [birth year] chest x-ray. The cough assist for this patient with use of the flutter valve for this patient if tolerated and instructions followed by the patient will be ordered. Sputum for Gram stain, culture will be ordered. Obtain another set of blood culture for this patient as well to rule out bacteremia. Other supportive therapy, plan of management, treatment and care. If necessary, obtain CT scan of the chest as well. Also, if the finding remains persistent and does not resolve, consider bronchoscopy for more accurate assessment of any infection or atelectasis, determination for the patient if agreed by the family members. Thank you for allowing me to participate in the care of this patient. IZZY WALLACE MD CM:CONSTR:REPORT OF CONSULTATION 1123 11/12/16 0211 interface
--- NOTE | ~2016-11-02 | PR ---
[place], [place] PROGRESS NOTE NAME: IZZY CADET [facility] #: [id number] UNIT #: [id number] ROOM: 510 DOCTOR: ABELARDO GARDUNO MD BIRTHDATE: [birth year] DOS: 11/04/2016 SUBJECTIVE: The patient complains of shoulder pain, but she does not have any complaint. She is confused, but does not cry out any more. OBJECTIVE: VITAL SIGNS: Blood pressure is 128/92, pulse is 66, respirations 20, temperature 98.7. LUNGS: Clear. HEART: Regular. ABDOMEN: Soft. Colostomy in place, which is working. LABORATORY DATA: WBC count is 5.5, hemoglobin 11.2, hematocrit 33.3, platelets 79. Glucose is 85, BUN 7, creatinine 0.58, sodium 142, potassium 3.4. Ultrasound of the abdomen shows cholelithiasis with chronic cholecystitis changes, but pericholecystic fluid recently seen is completely resolved. ASSESSMENT AND PLAN: 1. Confusion from metabolic encephalopathy. UTI with E. coli, appropriate antibiotics were started. The patient is still confused, but she has calmed down slightly with the medications. 2. Hypokalemia. Supplementation will be ordered. 3. Recent cholecystitis. The patient was deemed a poor candidate for any surgery. The ultrasound findings look better. The plan therefore is to discharge back to the [facility] in a day or two. ABELARDO GARDUNO MD CM:PNTRANS [id number] ABELARDO GARDUNO MD 11/04/16 2008 interface
--- NOTE | ~2016-11-02 | PR ---
[place], [place] PROGRESS NOTE NAME: IZZY CADET UNIT #: [id number] ROOM: 510 DOCTOR: ABELARDO GARDUNO MD BIRTHDATE: [birth year] DOS: SUBJECTIVE: The patient seems to be a little bit more alert than yesterday, but she appears to be in pain and moans a lot. OBJECTIVE: VITAL SIGNS: Blood pressure is 156/69, pulse of 75, respirations 20, temperature 98.4. LUNGS: Diminished breath sounds, scattered rhonchi and rales. HEART: Regular. ABDOMEN: Obese. Colostomy working. EXTREMITIES: Without any edema. IMAGING: Chest x-ray showed right middle lobe infiltrate, left lower lobe infiltrate. LABORATORY DATA: This morning shows glucose of 121, BUN 3, creatinine 0.63, sodium 144, potassium 3.3, chloride 110, bicarbonate 28. ASSESSMENT AND PLAN: 1. Hypernatremia, hyperchloremia. Free water supplementation given that seems to be improving. Decrease the rate of the free water supplementation. 2. Hypokalemia. Supplementation is ordered. 3. Right middle lobe, left lobe infiltrates. This is nosocomial, so the patient will be started on IV vancomycin in addition to the antibiotics that she is already on. 4. Recent urinary tract infection, which seems to have resolved with the antibiotics. 5. Seizure disorder with history of encephalomalacia from history of intracranial hemorrhage, on Keppra. 6. Chronic pain, not very well controlled. Add low dose fentanyl. 7. Overall prognosis remains poor and guarded. We will get an opinion from Dr. Almazan. [place], [place] PROGRESS NOTE NAME: IZZY CADET UNIT #: [id number] ROOM: 510 DOCTOR: ABELARDO GARDUNO MD BIRTHDATE: [birth year] ABELARDO GARDUNO MD CM:PNTRANS [id number] ABELARDO GARDUNO MD 11/11/16 1419 interface
--- NOTE | ~2016-11-02 | PR ---
[place], [place] PROGRESS NOTE NAME: IZZY CADET UNIT #: [id number] ROOM: 510 DOCTOR: NORY HERMAN DO BIRTHDATE: [birth year] DOS: 11/13/2016 SUBJECTIVE: The patient was seen and examined this morning with Dr. Wallace. She complains of chest congestion and inability to expectorate sputum. The patient denies any other complaints at this time. OBJECTIVE: VITAL SIGNS: Temperature normal, pulse 77, respiratory rate 20, blood pressure 115/67, pulse ox is 99 on venturi mask 40%, 12 liters oxygen. HEENT: Shows no changes. NECK: Supple. CARDIOVASCULAR: S1, S2 audible. LUNGS: Decreased breath sounds and scattered wheezing at the bases. ABDOMEN: Soft, nontender. EXTREMITIES: Show no edema. LABORATORY DATA: White cell count 10.2, hemoglobin 12.5, platelets 116. BUN 12, creatinine 1.64. Abdominal ultrasound done on 11/13/2016 shows cirrhotic changes within liver, cholelithiasis with gallbladder wall thickening suggestive of chronic cholecystic change, recommended HIDA scan. ASSESSMENT: 1. Acute bacterial pneumonia. 2. Possible aspiration pneumonia of the left lower lobe. 3. History of dementia. 4. Severe cough, chest congestion, inability to expectorate sputum. 5. Acute cholecystitis seen on abdominal ultrasound. PLAN OF TREATMENT: 1. The patient had bronch done this morning which showed mucus plugging and tracheobronchitis. The patient will be continued on Rocephin and doxycycline. 2. Await bronch cultures. 3. Supportive care. NORY HERMAN DO [place], [place] PROGRESS NOTE NAME: IZZY CADET UNIT #: [id number] ROOM: 510 DOCTOR: NORY HERMAN DO BIRTHDATE: [birth year] IZZY WALLACE MD CM:PNTRANS [id number] NORY HERMAN DO 11/13/16 1826 interface
--- NOTE | ~2016-11-02 | PROC NOTE ---
[place], [place] PROCEDURE NOTE NAME: [facility] CADET [id number] UNIT #: [id number] ROOM: 510 DOCTOR: MADISON MARES MD,IZZY BIRTHDATE: [birth year] DOS: 11/13/2016 PREOPERATIVE DIAGNOSES: Cough, wheezing and pneumonia with possibly superimposed atelectasis. The procedure was completed at 09:45 a.m. POSTOPERATIVE DIAGNOSIS: Copious amount of thick purulent secretion was removed from the endobronchial tree bilaterally, greater in the trachea and also impaction noted in the endobronchial tree subsegments bilaterally consistent with acute pneumonia. There were no endobronchial obstructive lesions. COMPLICATIONS: None. BLOOD LOSS: None. PROCEDURE DESCRIPTION: Informed consent obtained from the patient and family members. The patient was brought to the OR. She was placed in supine position. Conscious sedation administered by the Anesthesia Department. After achieving appropriate sedation, airway introduced into the mouth. The vocal cords were seen clearly. The epiglottis was seen. Vocal cord noted yellowish in color moving symmetrically with movements. Bronchoscope advanced through the vocal cord and tracheal lumen. Tracheal lumen noticed showed moderate to copious amount of thick purulent secretion, greenish in color. All secretions suctioned out to the cira level. Right upper, right middle, right lower, left upper, lingular lower lobe bronchi were all examined. The patient was noted with purulent secretion, which was present with impaction of the airway, subsegments bilaterally. All secretions suctioned out clear with the help of saline wash and sent for culture. Procedure was well tolerated by the patient without any complications and sent to the recovery room in stable condition. No changes in the treatment at this time will be necessary. Her postoperative findings were discussed with the patient in recovery room after completion of the procedure as well. IZZY WALLACE MD CM:PROCNOTE:PROCEDURE NOTE [id number] IZZY MARES MD
--- NOTE | ~2016-11-02 | PR ---
[place], [place] PROGRESS NOTE NAME: [id number] #: [id number] ROOM: 510 DOCTOR: ABELARDO GARDUNO MD BIRTHDATE: [birth year] DOS: 11/12/2016 SUBJECTIVE: The patient is much more awake and alert and oriented, does try to answer questions. She does still have moist sounding respirations. OBJECTIVE: VITAL SIGNS: Pressure is 128/79, pulse of 74, respirations 22, temperature 97.7. LUNGS: Diminished breath sounds, a few scattered rhonchi heard in the upper airways. HEART: Regular. ABDOMEN: Obese, soft. Colostomy in place. EXTREMITIES: Without knee edema. LABORATORY DATA: Potassium is 3.3, sodium is normal, chloride is normal. ASSESSMENT AND PLAN: 1. Right middle lobe and left lower lobe pneumonia, possible gram negative. Since this nosocomial, the patient was placed on IV vancomycin, but the vancomycin may be causing a rash with red man syndrome, so I will discontinue the vancomycin today. 2. Seizure disorder from history of encephalomalacia of an intracranial hemorrhage, no more seizures since the first one she had, on Keppra. 3. Hyponatremia, hypochloremia and hypokalemia. Supplementation was given. Labs look much better. We will discontinue IV fluids. Discussed with the patient's daughter in detail. The plan is to discharge her back to the [facility] on Thursday if Dr. Almazan does not plan to do a bronch. ABELARDO GARDUNO MD CM:PNTRANS 0 6 ABELARDO GARDUNO MD 11/12/16926 interface
--- NOTE | ~2016-11-02 | PR ---
[place], [place] PROGRESS NOTE NAME: IZZY CADET UNIT #: [id number] ROOM: 510 DOCTOR: NENITA AGUILAR MD BIRTHDATE: [birth year] DOS: 11/07/2016 SUBJECTIVE: The patient is appearing quite confused and restless, not telling me about any complaints. OBJECTIVE: VITAL SIGNS: Blood pressure 158/48, heart rate 77 beats per minute, breathing 20 times per minute, temperature 98 degrees Fahrenheit. GENERAL APPEARANCE: The patient is alert and oriented x 3, in no visible distress. HEENT AND NECK: Exam within normal limits. CARDIOVASCULAR SYSTEM: Heart rate is regular in rate and rhythm. S1 and S2 normally audible. LUNGS: Clear to auscultation. ABDOMEN: Soft, nontender. No obvious organomegaly. Bowel sounds are present. EXTREMITIES: Without significant cyanosis or edema. Mental confusion and generalized weakness. IMPRESSION: 1. The patient's urinary tract infection with Escherichia coli, being treated with ceftriaxone intravenously. 2. Delirium and mental confusion, probably made worse by urine infection. The patient is being watched closely. 3. Generalized seizure disorder, presently on Keppra and Ativan p.r.n., no seizures. 4. Chronic pain syndrome, controlled with fentanyl patch, which dose has been decreased gradually. 5. Benign essential hypertension with slightly elevated blood pressures being monitored and treated. 6. Hypokalemia, to be treated with extra potassium supplements and I will repeat potassium levels. NENITA AGUILAR MD CM:PNTRANS [phone] NENITA AGUILAR MD 11/07/16 2343 interface
[~2016-11-02 15:48] MED LIST changes: +AZTREONAM IV; +FLAGYL250 MG PO; +HUMALOG100 UNIT/1 SQ; +HYDROXYZINE HCL10 MG PO; +MULTIPLE VITAMI1 TA5 PO; +NYSTATIN AND TR1 OIN T; +RISPERDAL0.5 MG PO; +TYLENOL EXTRA500 M2 PO; +ZYRTEC10 MG PO
[2016-11-02 15:58] VITALS: BP 159/52
[2016-11-02 16:07] LABS: BASO % 0.6 % (0.0-1.0); EOS # 0.2 10*3/uL (0.0-0.4); EOS % 4.7 % (1.0-4.0); HEMATOCRIT 36.5 % (37.0-47.0); HEMOGLOBIN 12.4 g/dl (12.0-16.0); LYMPH # 0.9 10*3/uL (1.3-4.4); LYMPH % 18.1 % (27.0-41.0); MEAN CELL VOLUME 90.1 fl (81.0-99.0); MEAN CORPUSCULAR HGB 30.6 pg (27.0-31.0); MEAN PLATELET VOLUME 10.1 fl (9.6-12.3); MONO # 0.6 10*3/uL (0.1-1.0); MONO % 12.6 % (3.0-9.0); NEUT % 63.6 % (47.0-73.0); PLATELET COUNT AUTOMATED 76 10*3/uL (130-400); RED BLOOD COUNT 4.05 10*6/uL (4.10-5.10); WHITE BLOOD COUNT 4.7 10*3/uL (4.8-10.8)
[2016-11-02 16:46] LABS: ALBUMIN 2.4 gm/dl (3.1-4.5); ALKALINE PHOSPHATASE 89 U/L (45-117); BUN 7 mg/dl (7-24); CHLORIDE 109 mmol/L (98-107); CREATININE 0.69 mg/dL (0.55-1.02); POTASSIUM 3.6 mmol/L (3.5-5.1); SGOT/AST 25 IU/L (3-35); SGPT/ALT 13 U/L (12-78); SODIUM 142 mmol/L (136-145); TOTAL PROTEIN 6.9 gm/dL (6.4-8.2)
[2016-11-02 16:47] LABS: TROPONIN I < 0.015 ng/ml (<0.045)
[2016-11-02 17:00] VITALS: BP 172/70
--- NOTE | 2016-11-02 18:35 | NUR ---
ATTEMPTED TO STRAIGHT CATH PATIENT, NO URINE WAS OBTAINED. DEPEND WAS WET WITH URINE. PLACED CRUZ, MINIMAL DRAINAGE OBTAINED IN THE TUBE. SPOKE WITH DR. GUNN WHO PUT IN AN ORDER FOR IV FLUID. WENT TO GET IV FLUID, AND CAME BACK PTS UPPER EXTREMITIES WERE TENSE AND FACE WAS TWITCHING WITH SEIZURE LIKE ACTIVITY. 1MG OF ATIVAN ORDERED BY DR. GUNN AND GIVEN. PT HR WAS 48 DURING THE EVENT. CAME BACK UP TO 86. PT BREATHING NORMALLY AT THIS TIME. NOT EASILY AROUSABLE AT THIS TIME. BP-178/55, PULSE- 87, RESP-20 OXYGEN SAT-98% ON 2LNC
[2016-11-02 18:56] VITALS: BP 173/65
[2016-11-02 19:00] LABS: BILIRUBIN NEGATIVE (NEGATIVE); BLOOD 3+ (NEGATIVE); CLARITY CLOUDY (CLEAR); COLOR YELLOW (YELLOW); GLUCOSE NEGATIVE (NEGATIVE); KETONE NEGATIVE (NEGATIVE); LEUKO ESTERASE NEGATIVE (NEGATIVE); NITRITE NEGATIVE (NEGATIVE); SPECIFIC GRAVITY >= 1.030 (1.005-1.030); UROBILINOGEN 0.2 E.U./dl (0.2-1.0)
[2016-11-02 19:12] LABS: BACTERIA 1+; RBC 31-40 rbc/hpf (0-2)
[2016-11-02 20:43] VITALS: BP 144/66
--- NOTE | 2016-11-02 20:53 | NUR ---
PT AORUSED RIGHT BEFORE TRNASPORT. STERNAL RUB DONE AND ASKED PT TO STATE HER NAME. PT RESPONDED TO STERNAL RUB AND RETRACTED AND WHEN ASKED TO STATE HER NAME PT STATED "NO"
--- NOTE | 2016-11-02 20:54 | NUR ---
REPORT GIVEN TO ESTUARDO NAGY
--- NOTE | 2016-11-02 21:00 | NUR ---
Time: 2099 A 81 year old FEMALE admitted to 5E under services of ABELARDO FRIEDMAN MD. Pt. arrived via ambulance from ER. Chief complaint: METABOLIC ENCEPHALOPATHY, FAILURE TO THRIVE. NO FAMILY PRESENT. GIO HARRIS
[2016-11-02] MEDS ORDERED: LANTUS SOL100 UNIT/1 SQ (22:13)
[2016-11-02] MEDS ORDERED: LOVASTATIN10 MG PO (22:14)
[2016-11-02] MEDS ORDERED: JANUVIA100 MG PO (22:15)
[2016-11-02] MEDS ORDERED: GLIPIZIDE5 MG PO (22:15)
[2016-11-02] MEDS ORDERED: VISTARIL25 MG PO (22:16)
[2016-11-02] MEDS ORDERED: Duragesic 25 M25 MCG TD (22:17)
[2016-11-02] MEDS ORDERED: COREG3.125 MG PO (22:17)
[2016-11-02] MEDS ORDERED: COLACE100 MG PO (22:18)
[2016-11-02] MEDS ORDERED: CYMBALTA30 MG PO (22:18)
[2016-11-02] MEDS ORDERED: DUONEB 3 MG/3 ML3 M1 INH (22:19)
--- NOTE | 2016-11-02 22:26 | NUR ---
DR. EDMONDS NOTIFIED OF NEW ADMIT AND MEDS VERIFIED WITH ORCHARDS. DR. NG ENTER ORDERS.
[2016-11-03] VITALS: BP 144/66
--- NOTE | 2016-11-03 05:52 | NUR ---
PT YELLING OUT "HELP ME". WHEN QUESTIONED PT WHAT WAS WRONG, PT C/O NECK PAIN. REPOSITIONED PT W/OUT ANY RELIEF. MUCUOS MEMBRANES NOTED TO BE DRY. WATER OFFERED AND ACCEPTED. COMFORT GIVEN TO PT. COCCYX/BUTTOCKS RED/EXCORIATION NOTED. NO OPEN AREAS. PT TURNED ONTO SIDE.
--- NOTE | 2016-11-03 06:25 | NUR ---
DR. GARDUNO NOTIFIED OF PT YELLING OUT. ORDER RECEIVED FOR DEMEROL 25MG IVP X1 NOW.
[2016-11-03 08:00] VITALS: BP 128/92
--- NOTE | 2016-11-03 08:30 | NUR ---
SHIPPING AND RECEIVING WEIGHER VS. PT IS LTC AT [facility]. DAUGHTER DYLAN IS PRESENT AND STATES PT WILL RETURN UPON DC.
--- NOTE | 2016-11-03 09:31 | NUR ---
OLD FENTANYL PATCH WASTED AND WITNESSED BY DIVYA HOOPER RN
[2016-11-04 07:08] LABS: BASO % 0.5 % (0.0-1.0); EOS # 0.3 10*3/uL (0.0-0.4); EOS % 5.2 % (1.0-4.0); HEMATOCRIT 33.3 % (37.0-47.0); HEMOGLOBIN 11.2 g/dl (12.0-16.0); LYMPH # 0.8 10*3/uL (1.3-4.4); LYMPH % 13.9 % (27.0-41.0); MEAN CELL VOLUME 91.7 fl (81.0-99.0); MEAN CORPUSCULAR HGB 30.9 pg (27.0-31.0); MEAN CORPUSCULAR HGB CONC 33.6 g/dl (33.0-37.0); MEAN PLATELET VOLUME 10.7 fl (9.6-12.3); MONO # 0.6 10*3/uL (0.1-1.0); MONO % 11.2 % (3.0-9.0); NEUT # 3.8 10*3/uL (2.3-7.9); PLATELET COUNT AUTOMATED 79 10*3/uL (130-400); RED BLOOD COUNT 3.63 10*6/uL (4.10-5.10); RED CELL DISTRI WIDTH 14.1 % (0-14.5); WHITE BLOOD COUNT 5.5 10*3/uL (4.8-10.8)
[2016-11-04 07:16] LABS: BUN 7 mg/dl (7-24); CHLORIDE 111 mmol/L (98-107); CREATININE 0.58 mg/dL (0.55-1.02); POTASSIUM 3.4 mmol/L (3.5-5.1); SODIUM 142 mmol/L (136-145)
[2016-11-04 08:00] VITALS: BP 178/64
[2016-11-04 16:00] VITALS: BP 151/54
--- NOTE | 2016-11-04 20:00 | NUR ---
RESTING IN BED WITH EYES CLOSED. 02 INTACT AT 4LPM VIA NASAL CANNULA. LUNGS CLEAR WITH NO COUGH NOTED. IV FLUIDS INFUSING INTO LEFT HAND WITHOUT DIFFICULTY; SITE WRAPPED WITH KERLIX. PT. REPOSITIONED FOR COMFORT.
--- NOTE | 2016-11-04 22:00 | NUR ---
BLOOD SUGAR 114.
--- NOTE | 2016-11-04 22:00 | NUR ---
TOOK PO MEDICATIONS CRUSHED IN APPLESAUCE.
--- NOTE | 2016-11-04 23:00 | NUR ---
PT. RESTING IN BED WITH EYES CLOSED; MEDICATIONS GIVEN EARLIER APPRENTLY EFFECTIVE..
[2016-11-05] VITALS: BP 120/65
--- NOTE | 2016-11-05 06:00 | NUR ---
BLOOD SUGAR 115.
[2016-11-05 08:00] VITALS: BP 149/59
--- NOTE | 2016-11-05 14:31 | NUR ---
this nurse was asked to evaluate patients wound to her right 4th toe. No open wounds noted at the time of my assessment.
[2016-11-05 16:00] VITALS: BP 107/50
--- NOTE | 2016-11-05 20:00 | NUR ---
RESTING IN BED WITH HOB SLIGHTLY ELEVATED. 02 INTACT AT 4 LITERS VIA NASAL CANNULA. LUNGS WITH RHONCHI & NO COUGH NOTED AT THIS TIME. CRUZ PATENT FOR DARK YELLOW URINE. FEETS CONTRACTED. CALL LIGHT WITHIN REACH. NO DISTRESS NOTED; WILL CONTINUE TO MONITOR.
--- NOTE | 2016-11-05 22:00 | NUR ---
BLOOD SUGAR 87; NO COVERAGE REQUIRED.
--- NOTE | 2016-11-05 22:30 | NUR ---
PT. YELLING OUT "HELP ME." NO DISTRESS NOTED. GAVE PATIENT MOUTH CARE & MEDICATED HER PER M.D. ORDERS. IV FLUIDS CONTINUE TO INFUSE WITHOUT DIFFICULTY; SITE REMAINS ASYMPTOMATIC. NO DISTRESS NOTED; WILL CONTINUE TO MONITOR. NO SEIZURE ACTIVITY NOTED AT THIS TIME.
--- NOTE | 2016-11-06 06:00 | NUR ---
MOUTH CARE DONE. IV FLUIDS CONTINUE TO INFUSE WITHOUT DIFFICULTY; SITE ASYMPTOMATIC. BLOOD SUGAR 83. NO DISTRESS NOTED. WILL CONTINUE TO MONITOR.
[2016-11-06 08:00] VITALS: BP 180/48
[2016-11-06 08:30] LABS: BASO % 0.5 % (0.0-1.0); EOS # 0.3 10*3/uL (0.0-0.4); EOS % 4.6 % (1.0-4.0); HEMATOCRIT 33.2 % (37.0-47.0); HEMOGLOBIN 10.9 g/dl (12.0-16.0); LYMPH # 0.7 10*3/uL (1.3-4.4); LYMPH % 10.9 % (27.0-41.0); MEAN CELL VOLUME 94.6 fl (81.0-99.0); MEAN CORPUSCULAR HGB 31.1 pg (27.0-31.0); MEAN CORPUSCULAR HGB CONC 32.8 g/dl (33.0-37.0); MEAN PLATELET VOLUME 10.8 fl (9.6-12.3); MONO # 0.7 10*3/uL (0.1-1.0); MONO % 11.9 % (3.0-9.0); NEUT # 4.4 10*3/uL (2.3-7.9); NEUT % 71.4 % (47.0-73.0); PLATELET COUNT AUTOMATED 77 10*3/uL (130-400); RED BLOOD COUNT 3.51 10*6/uL (4.10-5.10); RED CELL DISTRI WIDTH 14.9 % (0-14.5); WHITE BLOOD COUNT 6.1 10*3/uL (4.8-10.8)
[2016-11-06 09:02] LABS: BUN 7 mg/dl (7-24); CHLORIDE 116 mmol/L (98-107); POTASSIUM 3.3 mmol/L (3.5-5.1); SODIUM 147 mmol/L (136-145)
[2016-11-06 16:00] VITALS: BP 95/67
--- NOTE | 2016-11-06 20:00 | NUR ---
RESTING IN BED WITH EYES CLOSED. NO DISTRESS NOTED. WILL CONTINUE TO MONITOR.
--- NOTE | 2016-11-06 22:30 | NUR ---
PT. COMBATIVE; UNABLE TO OBTAIN BLOOD SUGAR AT THIS TIME. GAVE PT. MOUTH CARE & GAVE HER PO MEDICATIONS CRUSHED IN APPLESAUCE. YELLS OUT "HELP ME". NO DISTRESS NOTED.
[2016-11-07] VITALS: BP 155/96
--- NOTE | 2016-11-07 05:30 | NUR ---
BLOOD SUGAR 63; DEXTROSE GIVEN PER EMAR.
[2016-11-07 08:00] VITALS: BP 170/60
[2016-11-07 16:00] VITALS: BP 158/48
--- NOTE | 2016-11-07 20:58 | NUR ---
PATIENT MEDICATED WITH PRN ATIVAN ORDERED FOR SXS OF RESTLESSNESS AND ANXIETY.
--- NOTE | 2016-11-07 21:00 | NUR ---
PATIENT TOOK MEDICATIONS CRUSHED IN APPLESAUCE
--- NOTE | 2016-11-07 22:00 | NUR ---
BLOOD SUGAR 112. NO COVERAGE REQUIRED.
--- NOTE | 2016-11-08 04:47 | NUR ---
PATIENT RESTING QUIETLY. RESPIRATIONS EASY/REGULAR. NO SXS OF DISTRESS. CALL LIGHT IS IN REACH.
--- NOTE | 2016-11-08 06:41 | NUR ---
BLOOD GLUCOSE 116. NO COVERAGE NEEDED. PATIENT TOOK PILLS CRUSHED IN APPLESAUCE WITH NO PROBLEM THIS MORNING. SHE SLEPT CALMLY THROUGHOUT THE NIGHT. NO SXS OF DISTRESS. CALL LIGHT IN REACH.
[2016-11-08 06:43] LABS: BUN 5 mg/dl (7-24); CHLORIDE 114 mmol/L (98-107); CREATININE 0.65 mg/dL (0.55-1.02); POTASSIUM 2.8 mmol/L (3.5-5.1); SODIUM 148 mmol/L (136-145)
[2016-11-08 08:00] VITALS: BP 154/41
[2016-11-08 16:00] VITALS: BP 107/70
[2016-11-09] VITALS: BP 178/61
[2016-11-09 08:00] VITALS: BP 170/66
[2016-11-09 16:00] VITALS: BP 161/66
[2016-11-09 20:00] VITALS: BP 158/63
[2016-11-10] VITALS: BP 157/48
--- NOTE | 2016-11-10 03:05 | NUR ---
ATIVAN GIVEN FOR ANXIETY. WILL MONITOR.
[2016-11-10 06:46] LABS: BUN 3 mg/dl (7-24); CHLORIDE 117 mmol/L (98-107); CREATININE 0.61 mg/dL (0.55-1.02); POTASSIUM 3.3 mmol/L (3.5-5.1); SODIUM 150 mmol/L (136-145)
[2016-11-10 08:00] VITALS: BP 186/60
--- NOTE | 2016-11-10 10:41 | NUR ---
MORPHINE EFFECIVE PER PT
--- NOTE | 2016-11-10 11:38 | NUR ---
SPOKE WITH DR GARDUNO REGARDING CXR RESULTS. NEW ORDERS RECIEVED
--- NOTE | 2016-11-10 14:23 | NUR ---
SPEECH PATHOLOGY Ms. Ervin was seen this AM for a clinical swallowing evaluation. General Comments: Ms. Ervin remained awake and alert throughout the evaluation. She was receiving 2L02/NC. Her daughter was present and provided background information regarding swallowing history. Evaluation: During this encounter an interview, oral mechanism exam, and swallowing evaluation were completed. Oral mechanism exam was brief as patient did not follow all commands. Patient's lingual, labial, and facial movements were mildly reduced in rate but adequate for symmetry, strength, ROM, and coordination. Ms. Ervin is edentulous with upper dentures; these were placed for coarse solid trials. Please see Evaluation Report for results of swallowing exam. Impressions: Ms. Ervin presents with mild oral dysphagia c/b prolonged mastication likely 2/2 missing lower dentition and generalized weakness. Her least restrictive diet at this time is Soft foods with Thin Liquids. Recommendations: 1. Modify diet to Soft foods with Thin Liquids 2. [employer] to follow-up to ensure tolerance and trial advanced consistencies as appropriate. 3. Standard aspiration precautions: Fully upright, awake, and alert for all PO; Small bites/sips; Oral care at least BID. POC: [employer] will follow-up with patient tomorrow to further evaluate tolerance to diet and provide education to patient and family regarding swallowing function and aspiration precautions. Thank you for this referral. MARIOLA Carvajal-[employer]
[2016-11-10 16:00] VITALS: BP 162/65
[2016-11-10 20:00] VITALS: BP 159/73
[2016-11-11] VITALS: BP 156/69
[2016-11-11 06:34] LABS: BUN 3 mg/dl (7-24); CHLORIDE 110 mmol/L (98-107); CREATININE 0.63 mg/dL (0.55-1.02); POTASSIUM 3.3 mmol/L (3.5-5.1); SODIUM 144 mmol/L (136-145)
[2016-11-11 08:00] VITALS: BP 165/62
--- NOTE | 2016-11-11 08:00 | NUR ---
DR. GARDUNO IN TO SEE PATIENT. IV FLUIDS INFUSING.
--- NOTE | 2016-11-11 10:55 | NUR ---
DR. WALLACE OFFICE NOTIFIED OF CONSULT.
[2016-11-11 12:00] VITALS: BP 183/86
--- NOTE | 2016-11-11 12:00 | NUR ---
PATIENT REFUSED BLOOD SUGAR DRAW.
[2016-11-11 13:28] VITALS: BP 150/70
--- NOTE | 2016-11-11 14:08 | NUR ---
SPEECH PATHOLOGY Patient was seen for dysphagia treatment to ensure safe tolerance of soft diet and thin liquids. Upon first attempt, breakfast tray was present. Patient was awakened and seated upright in bed and responded that she wanted to eat. She was given two bites of oatmeal which she swallowed and then began to fall asleep. Feeding was not continued as it was not felt that she was alert enough. Another attempt was made later in the morning. Patient's daughter was present. Patient was sleeping and barely aroused. Daughter was educated on results of earlier attempt and safe swallow strategies. She verbalized understanding. Discussed with daughter that attempt would be made again this pm, as patient may be more alert at that time. Clinician returned in the pm. Lunch tray was present. Patient responded to some questions and when asked if she wanted to sit up and eat, she stated "No, I'm just so tired." No attempt at feeding was made due to lethargy. Continue therapy plan tomorrow. PATRICE BROWN MSCCC-SCORE CALLER
[2016-11-11 16:00] VITALS: BP 109/55
--- NOTE | 2016-11-11 17:08 | NUR ---
PATIENT REFUSES BLOOD SUGAR.
[2016-11-11 20:00] VITALS: BP 153/60
--- NOTE | 2016-11-11 21:00 | NUR ---
PT RESTING IN BED, IVF INFUSING PER ORDER. PT IN NO DISTRESS, PT DENIES BLOOD SUGAR CHECK AT THIS TIME. BED IN LOW POSITION, CALL LIGHT WITHIN REACH.
[2016-11-12] VITALS: BP 144/58
[2016-11-12 07:01] LABS: BASO # 0.1 10*3/uL (0.0-0.1); BASO % 0.5 % (0.0-1.0); EOS # 0.9 10*3/uL (0.0-0.4); EOS % 8.4 % (1.0-4.0); HEMATOCRIT 37.3 % (37.0-47.0); HEMOGLOBIN 12.5 g/dl (12.0-16.0); LYMPH # 1.4 10*3/uL (1.3-4.4); LYMPH % 14.2 % (27.0-41.0); MEAN CELL VOLUME 91.6 fl (81.0-99.0); MEAN CORPUSCULAR HGB 30.7 pg (27.0-31.0); MEAN CORPUSCULAR HGB CONC 33.5 g/dl (33.0-37.0); MEAN PLATELET VOLUME 10.5 fl (9.6-12.3); MONO # 1.4 10*3/uL (0.1-1.0); MONO % 13.7 % (3.0-9.0); NEUT # 6.4 10*3/uL (2.3-7.9); NEUT % 62.8 % (47.0-73.0); PLATELET COUNT AUTOMATED 116 10*3/uL (130-400); RED BLOOD COUNT 4.07 10*6/uL (4.10-5.10); RED CELL DISTRI WIDTH 16.1 % (0-14.5); WHITE BLOOD COUNT 10.2 10*3/uL (4.8-10.8)
[2016-11-12 07:26] LABS: BUN 5 mg/dl (7-24); CHLORIDE 107 mmol/L (98-107); CREATININE 0.73 mg/dL (0.55-1.02); POTASSIUM 3.3 mmol/L (3.5-5.1); SODIUM 143 mmol/L (136-145)
[2016-11-12 08:00] VITALS: BP 128/79
--- NOTE | 2016-11-12 08:00 | NUR ---
PATIENT RESTING. CALLING OUT AT TIMES. TO XRAYF OR CHEST FILM.
--- NOTE | 2016-11-12 09:56 | NUR ---
PATIENT UNRESPONSIVE. COLOR DUSKY, PULSE OX 64%. MOUTH DRAWN AND TWITCHING. RAPID RESPONSE CALLED. ATIVAN 2 MG GIVEN IV. 100% NON REBREATHER PLACED ON PATIENT. PULSE OX INCREASED TO 94%. NO FURTHER TWITCHING. COLOR IMPROVED.
--- NOTE | 2016-11-12 10:15 | NUR ---
DR. GARDUNO NOTIFIED. DAUGHTER AT THE BEDSIDE. PATIENT SLEEPING AT PRESENT.
--- NOTE | 2016-11-12 12:00 | NUR ---
PATIENT RESTING QUIETLY.
--- NOTE | 2016-11-12 13:53 | NUR ---
SPEECH PATHOLOGY Treatment withheld this date. Nurse reported that patient suffered a possible seizure earlier this date. Patient was given ativan and was currently resting quietly. Will check on patient tomorrow and continue with treatment plan as appropriate. PATRICE BROWN MSCCC-EMPLOYEE ADVISER
--- NOTE | 2016-11-12 14:31 | NUR ---
IZZY CADET [id number] Please refer to the physician's history and physical for past medical history, comorbid conditions, and allergies. 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 Pt unable to state how this happened Location of the wound: right buttocks Type of wound: DTI Size: 4.1cm x 4.5cm x 0.1cm Tunneling: none Undermining: none Sinus Tract: none Presence of Exudate: serosanguineous Amount: Light Color: Purple, red Odor: None Periwound Skin Appearance: Erythema Wound edges: approximated Pain (associated with wound): none at time of assessment How does patient state this happened? pt unable to state how this happened Surface the patient is resting on: Isoflex SKIN PREVENTION RECOMMENDATION: 1. Pressure redistribution support surface as appropriate 2. Elevate heels 3. Remove boots/TEDS every shift and reapply 4. Head of bed 30 degrees as tolerated 5. Assess nutrition and hydration 6. Manage moisture 7. Avoid the use of containment devices while in bed 8. Use absorptive products on surfaces limit layers of linens on bed 9. Turn and reposition every 1-2 hours in bed and every 1 hour in chair as tolerated 10. Weight shifts every 15 minutes while up in chair 11. Offloading with pillows or device to keep heels elevated off bed 12. Monitor skin at least every shift 13. Inspect under medical devices twice a day WOUND TREATMENT RECOMMENDATIONS: Wheelchair cushion for when OOB. Cleanse R & L buttocks with nss and apply sureprep to the surrounding wound cover wound beds with therahoney and cover with optifoam sacral gentle daily and prn for soiling.
[2016-11-12 16:00] VITALS: BP 136/85
--- NOTE | 2016-11-12 19:40 | NUR ---
EYES CLOSED BUT PT. RESPONDS TO TOUCH AND OCCAS. MOAN. HAVING PERIODS OF ABD BREATHING. RESP. PLACED PT. BACK ON NON REBREATHER AFTER AEROSAL TREATMENT PULSE OX WENT TO 88% WITH 40% VENTURI. RESP. MOIST WITH MOIST NON-EFFECTIVE COUGH TO CLEAR AIRWAY WELL. COLOSTOMY AND CRUZ INTACT AND DRAINING. HEEL PROTECTORS IN USE GOOD PEDAL PULSES. BP CHECKED MANUALLY 106/70. GENERALIZED EDEMA NOTED. LEGS AND FOLDS AROUND GROIN AND UNDERBREAST RED RASH.
[2016-11-12 20:00] VITALS: BP 106/70
--- NOTE | 2016-11-12 20:30 | NUR ---
EYES OPENED SPONTANEOUSLY AND PT. WENT BACK TO RESTING. FAMILY AT BEDSIDE.
--- NOTE | 2016-11-12 22:18 | NUR ---
PT. AWAKEND SOME MOANING BUT WAS ABLE TO VERBALIZE WATER AND ANSWER YES/NO QUESTIONS. PT. ABLE TO TAKE MEDICATION AND ATE 1 CONTAINER OF APPLESAUCE AND DRANK FEW SIPS OF WATER AND APPLE JUIC.
[2016-11-13 00:31] VITALS: BP 121/49
--- NOTE | 2016-11-13 02:30 | NUR ---
Monroe not draining, checked placement and monroe was pulled out balloon was laying between legs. attempted to place new monroe per policy/procedure via steril technique and unsuccessful at this time. pt. was incontinent of small amount urine prior to placement. Bladder scan did not reviel any urine in bladder at present time. will give pt. a break and try again.
--- NOTE | 2016-11-13 03:30 | NUR ---
PT. SLEEPING. RESP. CHANGED PT. FROM NON REBREATHER TO 50% VENTURI MASK AND PULSE OX 97%.
--- NOTE | 2016-11-13 07:14 | NUR ---
CALLED DR. GARDUNO AND NOTIFIED HER OF CRUZ COMING OUT AND BLADDER SCANNED FOR ZERO URINE. CRUZ NOT PLACED. ORDERS RECEIVED TO DO STAT BASIC.
[2016-11-13 08:00] VITALS: BP 128/52
[2016-11-13 08:02] LABS: CREATININE 1.64 mg/dL (0.55-1.02); POTASSIUM 4.1 mmol/L (3.5-5.1)
[2016-11-13 09:00] VITALS: BP 133/99
--- NOTE | 2016-11-13 09:00 | NUR ---
PT LEFT FLOOR FOR BRONCHOSCOPY.
--- NOTE | 2016-11-13 09:23 | NUR ---
SPEECH PATHOLOGY Patient is currently NPO and is scheduled for medical procedures this date. Continue plan as appropriate. PATRICE BROWN MSCCC-SPORTS RECRUITER
--- NOTE | 2016-11-13 09:40 | NUR ---
PT RETURNED TO THE FLOOR, CONDITION UNCHANGED. UNABLE TO FOLLOW COMMANDS. APPEARED TO BE RESTING COMFORTABLY.
[2016-11-13 09:53] VITALS: BP 99/40
[2016-11-13 10:10] VITALS: BP 96/38
[2016-11-13 10:25] VITALS: BP 115/67
--- NOTE | 2016-11-13 10:40 | NUR ---
PT RETURNED TO FLOOR, CONDITION UNCHANGED. PATIENT UNABLE TO FOLLOW COMMANDS. PATIENT APPEARS TO BE RESTING COMFORTABLY.
--- NOTE | 2016-11-13 11:33 | NUR ---
DAUGHTER IZZY CALLED TO REPORT PT HAD A CHANGE IN STATUS AND WE ARE RECOMMENDING SHE SHOULD COME IN [place].
--- NOTE | 2016-11-13 11:35 | NUR ---
PATIENT CEASED BREATHING, PULSELESS. DR GARDUNO AND REGISTRATION MANAGER NOTIFIED.
--- NOTE | 2016-11-13 11:55 | NUR ---
IZZY TOWNSEND HERE WITH PATIENT.
--- NOTE | 2016-11-13 11:56 | NUR ---
NOTIFIED DR WALLACE REGARDING .
--- NOTE | 2016-11-13 11:59 | NUR ---
SPOKE WITH [employer] REGARDING CONTACTING WATCH ASSEMBLY INSPECTOR.
--- NOTE | 2016-11-13 12:09 | NUR ---
SPOKE WITH BACK GRINDER, VIOLA SMITH , REGARDING & AM PROCEDURE. PER BACK GRINDER, HE HAS NO PROBLEM WITH DR GARDUNO SIGNING THE CERTIFICATE. BODY CAN BE RELEASED.
--- NOTE | 2016-11-13 12:31 | NUR ---
SPOKE WITH FIDENCIO RUST AT [facility] WHO REQUESTS THAT BODY BE PUT ON HOLD FOR POSSIBLE TISSUE DONATION.BODY WILL BE SENT TO [facility] [place] ONCE FAMILY HAS LEFT.
--- NOTE | 2016-11-13 12:44 | NUR ---
SPOKE WITH FIDENCIO RUST AT [facility]. PT NO LONGER A CANDIDATE FOR TISSUE DONATION. OK TO RELEASE PT TO HOME WHEN FAMILY LEAVES.
--- NOTE | 2016-11-13 15:07 | NUR ---
ATTEMPTED TO CALL [facility] TO REPORT , AWAITING RETURN CALL.
--- NOTE | 2016-11-13 16:31 | NUR ---
PT TRANSPORTED OFF FLOOR TO [facility] [place].
--- NOTE | 2016-11-13 18:17 | NUR ---
PHONE CALL TO THE [facility] TO NOTIFY THEM OF PATIENT PASSING. SPOKE WITH LACEY.
[2016-11-14 17:06] LABS: ACID FAST SMEAR Negative (.); ACID FAST SPEC PROCESSING Concentration (.)
== END 2016-11-13 11:35 | disposition expired | DRG 193 ==
LOC: ED 15:48 → 5E 20:08 → EDHOLD 20:08 → 5E 20:32
PROVIDERS: Family Medicine Adult Medicine; Internal Medicine; Internal Medicine Critical Care Medicine; ADMIT Internal Medicine
PROC: 0B958ZX Drainage of Right Middle Lobe Bronchus, Via Natural or Artificial Opening Endoscopic, Diagnostic (ICD-10-PCS; principal; 2016-11-13)
PROC: 0B968ZX Drainage of Right Lower Lobe Bronchus, Via Natural or Artificial Opening Endoscopic, Diagnostic (ICD-10-PCS; principal; 2016-11-13)
PROC: 0B918ZX Drainage of Trachea, Via Natural or Artificial Opening Endoscopic, Diagnostic (ICD-10-PCS; principal; 2016-11-13)
PROC: 0B988ZX Drainage of Left Upper Lobe Bronchus, Via Natural or Artificial Opening Endoscopic, Diagnostic (ICD-10-PCS; principal; 2016-11-13)
PROC: 0B948ZX Drainage of Right Upper Lobe Bronchus, Via Natural or Artificial Opening Endoscopic, Diagnostic (ICD-10-PCS; principal; 2016-11-13)
PROC: 0B998ZX Drainage of Lingula Bronchus, Via Natural or Artificial Opening Endoscopic, Diagnostic (ICD-10-PCS; principal; 2016-11-13)
DX: J15.9 Unspecified bacterial pneumonia (principal); G93.41 Metabolic encephalopathy; J96.90 Respiratory failure, unspecified, unspecified whether with hypoxia or hypercapnia; K81.0 Acute cholecystitis; E87.0 Hyperosmolality and hypernatremia; N39.0 Urinary tract infection, site not specified; E87.1 Hypo-osmolality and hyponatremia; F03.90 Unspecified dementia, unspecified severity, without behavioral disturbance, psychotic disturbance, mood disturbance, and anxiety; E87.6 Hypokalemia; E87.8 Other disorders of electrolyte and fluid balance, not elsewhere classified; I11.0 Hypertensive heart disease with heart failure; I50.9 Heart failure, unspecified; K74.60 Unspecified cirrhosis of liver; R62.7 Adult failure to thrive; B96.20 Unspecified Escherichia coli [E. coli] as the cause of diseases classified elsewhere; G40.409 Other generalized epilepsy and epileptic syndromes, not intractable, without status epilepticus; G89.4 Chronic pain syndrome; Y95 Nosocomial condition; G93.89 Other specified disorders of brain; Z95.2 Presence of prosthetic heart valve; Z93.3 Colostomy status; Z86.73 Personal history of transient ischemic attack (TIA), and cerebral infarction without residual deficits; Z88.5 Allergy status to narcotic agent; Z88.0 Allergy status to penicillin; Z88.8 Allergy status to other drugs, medicaments and biological substances; Z88.1 Allergy status to other antibiotic agents; Z91.041 Radiographic dye allergy status